=== PATIENT | male | born 1985 | race Caucasian/White ===

== ENCOUNTER 2021-07-11 09:57 | Inpatient (IN) | payer OTHER ==
[2021-07-11] MEDS ORDERED: MAGNESIUM CITRATE 300 ML BOTTLE PO PRN (12:13)
[2021-07-11] MEDS ORDERED: NICOTINE POLACRILEX 2 MG GUM BUC PRN (12:13)
[2021-07-11] MEDS ORDERED: IBUPROFEN 400 MG TABLET (FP) PO PRN (12:13)
[2021-07-11] MEDS ORDERED: LOPERAMIDE HCL 2 MG CAPSULE PO PRN (12:13)
[2021-07-11] MEDS ORDERED: guaiFENesin 200 MG/10 ML 10 ML UNIT-DOSE CUPS PO PRN (12:13)
[2021-07-11] MEDS ORDERED: ACETAMINOPHEN 325 MG TABLET (FP) PO PRN (12:13)
[2021-07-11] MEDS ORDERED: P-EPHED 60MG/TRIPROLIDI 2.5MG TABLET PO PRN (12:13)
[2021-07-11] MEDS ORDERED: MAGNESIUM HYDROX 2400MG/30ML ORAL SUSPENSION 30 ML CUP PO PRN (12:13)
[2021-07-11] MEDS ORDERED: MAG HYDROX/AL HYDROX/SIMETH 30 ML UNIT-DOSE CUP PO PRN (12:13)
[2021-07-11] MEDS ORDERED: ONDANSETRON *ODT* 4 MG TABLET SL PRN (12:15)
[2021-07-11] MEDS ORDERED: ALBUTEROL SO4 HFA INHALER IH PRN (12:16)
[2021-07-11 12:31] VITALS: BMI 28.8
[2021-07-11] MEDS ORDERED: TUBERCULIN PPD 5 TU/0.1ML VIAL ID ONE (14:15)
[2021-07-11] MEDS: ASPIRIN COATED 81 MG TABLET.EC PO SCH (14:19)
[2021-07-11] MEDS: PANTOPRAZOLE 40 MG TABLET PO SCH (14:19)
[2021-07-11] MEDS: LIDOCAINE 5% TOPICAL PATCH TP SCH (14:24)
[2021-07-11] MEDS: hydrOXYzine PAMOATE 25 MG CAPSULE (FP) PO SCH ×2 (14:25→19:36)
[2021-07-11] MEDS: BUDESONIDE/FORMETEROL FUMARATE 80/4.5 mcg INHALER IH SCH (14:25)
[2021-07-11] MEDS: LIDOCAINE PATCH REMOVAL MC SCH (21:12)
[2021-07-11] MEDS: GABAPENTIN 300 MG CAPSULE PO SCH (21:12)
[2021-07-11] MEDS: MELATONIN 5 MG TABLETS PO SCH (21:12)
[2021-07-11] MEDS: THIAMINE HCL 100 MG TABLET (FP) PO SCH (21:12)
[2021-07-12] MEDS: NICOTINE 10 MG CARTRIDGE (INHALER) IH PRN (07:01)
[2021-07-12] MEDS: ACETAMINOPHEN 325 MG TABLET (FP) PO PRN ×2 (13:19→19:35)
[2021-07-12] MEDS: LIDOCAINE 5% TOPICAL PATCH TP SCH (13:20)
[2021-07-12] MEDS: PANTOPRAZOLE 40 MG TABLET PO SCH (13:20)
[2021-07-12] MEDS: GABAPENTIN 300 MG CAPSULE PO SCH ×2 (13:20→21:25)
[2021-07-12] MEDS: ASPIRIN COATED 81 MG TABLET.EC PO SCH (13:20)
[2021-07-12] MEDS: PRENATAL VITAMINS W/ FOLIC ACID TABLET (FP) PO SCH (13:21)
[2021-07-12] MEDS: BUDESONIDE/FORMETEROL FUMARATE 80/4.5 mcg INHALER IH SCH (13:23)
[2021-07-12] MEDS ORDERED: GABAPENTIN 300 MG CAPSULE PO SCH (14:45)
[2021-07-12] MEDS: SERTRALINE HCL 50 MG TABLET (FP) PO SCH (15:03)
[2021-07-12] MEDS: MELATONIN 5 MG TABLETS PO SCH (21:25)
[2021-07-12] MEDS: THIAMINE HCL 100 MG TABLET (FP) PO SCH (21:25)
[2021-07-12] MEDS: LIDOCAINE PATCH REMOVAL MC SCH (21:25)
[2021-07-13] MEDS: ACETAMINOPHEN 325 MG TABLET (FP) PO PRN ×2 (00:35→07:11)
[2021-07-13] MEDS: NICOTINE 10 MG CARTRIDGE (INHALER) IH PRN ×2 (07:28→17:57)
[2021-07-13] MEDS: ASPIRIN COATED 81 MG TABLET.EC PO SCH (10:03)
[2021-07-13] MEDS: SERTRALINE HCL 50 MG TABLET (FP) PO SCH (10:03)
[2021-07-13] MEDS: PRENATAL VITAMINS W/ FOLIC ACID TABLET (FP) PO SCH (10:03)
[2021-07-13] MEDS: PANTOPRAZOLE 40 MG TABLET PO SCH (10:03)
[2021-07-13] MEDS: LIDOCAINE 5% TOPICAL PATCH TP SCH (10:36)
[2021-07-13] MEDS: GABAPENTIN 300 MG CAPSULE PO SCH ×2 (10:36→21:22)
[2021-07-13] MEDS: BUDESONIDE/FORMETEROL FUMARATE 80/4.5 mcg INHALER IH SCH (10:37)
[2021-07-13] MEDS: CYCLOBENZAPRINE HCL 10 MG TABLET (FP) PO SCH ×2 (11:22→14:29)
[2021-07-13 12:36] LABS: HEMATOCRIT 43.1 % (35.4-49); HEMOGLOBIN 14.3 GM/dL (11.7-16.9); MCH 31.4 pg (25.7-33.7); MCHC 33.2 g/dl (32.0-35.9); MEAN CELL VOLUME 94.3 fl (80-96); MEAN PLT VOLUME 10.9 fl (7.5-11.1); PLATELET COUNT 214 10^3/uL (134-434); RBC 4.57 M/mm3 (4.00-5.60); RDW 13.3 % (11.9-15.9); WHITE BLOOD COUNT 7.6 K/mm3 (4.0-10.0)
[2021-07-13 13:00] LABS: CALCIUM 8.9 mg/dL (8.5-10.1)
[2021-07-13 13:01] LABS: ALBUMIN 3.8 g/dl (3.4-5.0); BLOOD UREA NITROGEN 19.9 mg/dL (7-18)
[2021-07-13 13:06] LABS: BILIRUBIN,TOTAL 0.4 mg/dL (0.2-1); TOT PROT 6.6 g/dl (6.4-8.2)
[2021-07-13] MEDS: METHOCARBAMOL 750 MG TABLET PO SCH ×2 (17:57→21:23)
[2021-07-13 20:10] LABS: PH,URINE 6.5 (5.0-8.0); URINE APPEARANCE CLEAR; URINE BILIRUBIN NEGATIVE (NEGATIVE); URINE COLOR YELLOW; URINE GLUCOSE (UA) NEGATIVE (NEGATIVE); URINE KETONE TRACE (NEGATIVE); URINE LEUK ESTERASE NEGATIVE (NEGATIVE); URINE NITRITE NEGATIVE (NEGATIVE); URINE PROTEIN TRACE (NEGATIVE)
[2021-07-13] MEDS: MELATONIN 5 MG TABLETS PO SCH (21:22)
[2021-07-13] MEDS: THIAMINE HCL 100 MG TABLET (FP) PO SCH (21:23)
[2021-07-13] MEDS: LIDOCAINE PATCH REMOVAL MC SCH (21:23)
[2021-07-14] MEDS: NICOTINE 10 MG CARTRIDGE (INHALER) IH PRN (06:49)
[2021-07-14 08:27] LABS: SARS-CoV-2 NAA Not Detected
[2021-07-14] MEDS: ASPIRIN COATED 81 MG TABLET.EC PO SCH (09:52)
[2021-07-14] MEDS: BUDESONIDE/FORMETEROL FUMARATE 80/4.5 mcg INHALER IH SCH (09:52)
[2021-07-14] MEDS: SERTRALINE HCL 50 MG TABLET (FP) PO SCH (09:52)
[2021-07-14] MEDS: METHOCARBAMOL 750 MG TABLET PO SCH ×3 (09:53→21:01)
[2021-07-14] MEDS: GABAPENTIN 300 MG CAPSULE PO SCH ×2 (09:53→21:35)
[2021-07-14] MEDS: PANTOPRAZOLE 40 MG TABLET PO SCH (09:53)
[2021-07-14] MEDS: PRENATAL VITAMINS W/ FOLIC ACID TABLET (FP) PO SCH (09:53)
[2021-07-14] MEDS: LIDOCAINE 5% TOPICAL PATCH TP SCH (09:55)
[2021-07-14 10:57] LABS: SYPHILIS W/ RPR CONF NON-REACTIVE (NONREACTIVE)
[2021-07-14] MEDS: MELATONIN 5 MG TABLETS PO SCH (21:35)
[2021-07-14] MEDS: THIAMINE HCL 100 MG TABLET (FP) PO SCH (21:35)
[2021-07-14] MEDS: BACITRACIN 0.9 GM PACKET TP SCH (21:36)
[2021-07-14] MEDS: LIDOCAINE PATCH REMOVAL MC SCH (21:36)
[2021-07-14] MEDS: METHOCARBAMOL 500 MG TABLET PO SCH (21:36)
[2021-07-15] MEDS: ASPIRIN COATED 81 MG TABLET.EC PO SCH (11:23)
[2021-07-15] MEDS: BUDESONIDE/FORMETEROL FUMARATE 80/4.5 mcg INHALER IH SCH (11:23)
[2021-07-15] MEDS: BACITRACIN 0.9 GM PACKET TP SCH ×2 (11:23→21:24)
[2021-07-15] MEDS: SERTRALINE HCL 50 MG TABLET (FP) PO SCH (11:24)
[2021-07-15] MEDS: LIDOCAINE 5% TOPICAL PATCH TP SCH (11:24)
[2021-07-15] MEDS: METHOCARBAMOL 500 MG TABLET PO SCH ×4 (11:24→21:25)
[2021-07-15] MEDS: PANTOPRAZOLE 40 MG TABLET PO SCH (11:24)
[2021-07-15] MEDS: GABAPENTIN 300 MG CAPSULE PO SCH ×2 (11:24→21:24)
[2021-07-15] MEDS: PRENATAL VITAMINS W/ FOLIC ACID TABLET (FP) PO SCH (11:25)
[2021-07-15] MEDS: ACETAMINOPHEN 325 MG TABLET (FP) PO PRN (11:37)
[2021-07-15] MEDS: MELATONIN 5 MG TABLETS PO SCH (21:24)
[2021-07-15] MEDS: THIAMINE HCL 100 MG TABLET (FP) PO SCH (21:24)
[2021-07-15] MEDS: LIDOCAINE PATCH REMOVAL MC SCH (21:25)
[2021-07-16] MEDS: NICOTINE 10 MG CARTRIDGE (INHALER) IH PRN (07:11)
[2021-07-16 08:15] VITALS: BP 124/74; PULSE 75; TEMP 96.9
[2021-07-16] MEDS: BACITRACIN 0.9 GM PACKET TP SCH (10:13)
[2021-07-16] MEDS: SERTRALINE HCL 50 MG TABLET (FP) PO SCH (10:13)
[2021-07-16] MEDS: BUDESONIDE/FORMETEROL FUMARATE 80/4.5 mcg INHALER IH SCH (10:13)
[2021-07-16] MEDS: ASPIRIN COATED 81 MG TABLET.EC PO SCH (10:14)
[2021-07-16] MEDS: LIDOCAINE 5% TOPICAL PATCH TP SCH (10:14)
[2021-07-16] MEDS: PANTOPRAZOLE 40 MG TABLET PO SCH (10:14)
[2021-07-16] MEDS: PRENATAL VITAMINS W/ FOLIC ACID TABLET (FP) PO SCH (10:14)
[2021-07-16] MEDS: GABAPENTIN 300 MG CAPSULE PO SCH (10:14)
[2021-07-16] MEDS: METHOCARBAMOL 500 MG TABLET PO SCH (10:15)
== END 2021-07-16 10:35 | disposition home or self-care (01) | DRG 772 ==
LOC: YASAS 09:57 → Y3W 12:46
PROVIDERS: ADMIT Allergy & Immunology; ATTEND Allergy & Immunology
PROC: HZ42ZZZ Group Counseling for Substance Abuse Treatment, Cognitive-Behavioral (ICD-10-PCS; principal; 2021-07-11)
DX: F10.20 Alcohol dependence, uncomplicated (principal); F17.210 Nicotine dependence, cigarettes, uncomplicated; F10.24 Alcohol dependence with alcohol-induced mood disorder; F10.282 Alcohol dependence with alcohol-induced sleep disorder; F20.9 Schizophrenia, unspecified; F31.9 Bipolar disorder, unspecified; I48.91 Unspecified atrial fibrillation; I10 Essential (primary) hypertension; J45.909 Unspecified asthma, uncomplicated; K21.9 Gastro-esophageal reflux disease without esophagitis; M54.50 Low back pain, unspecified; G89.29 Other chronic pain; W19.XXXA Unspecified fall, initial encounter; Y92.230 Patient room in hospital as the place of occurrence of the external cause; Z62.810 Personal history of physical and sexual abuse in childhood; I69.854 Hemiplegia and hemiparesis following other cerebrovascular disease affecting left non-dominant side; Z99.89 Dependence on other enabling machines and devices; Z28.310 Unvaccinated for COVID-19; Z56.0 Unemployment, unspecified; Z59.00 Homelessness unspecified
CPT/HCPCS: 36415; 80053; 81003; 82962; 85027; 86780; 86803; 93005; 93010; C9803-CS; U0003; U0005

== ENCOUNTER 2021-07-12 09:40 | Emergency (ER) | payer OTHER ==
[2021-07-12 09:51] VITALS: BP 124/72; PULSE 74; TEMP 97.8; BMI 28.8
[2021-07-12] MEDS ORDERED: IBUPROFEN 400 MG TABLET (FP) PO ONE ×2 (10:11→11:30)
[2021-07-12] MEDS ORDERED: METHOCARBAMOL 500 MG TABLET PO ONE (11:25)
[2021-07-12] MEDS ORDERED: METHOCARBAMOL 500 MG TABLET ONE (11:53)
== END 2021-07-12 12:11 | disposition home or self-care (01) ==
LOC: JER 09:40
DX: R07.81 Pleurodynia (principal); W19.XXXA Unspecified fall, initial encounter
CPT/HCPCS: 70450-TC; 71046-TC-FY; 72125-TC; 72170-TC-FY; 93005; 93010; 99285-25

== ENCOUNTER 2021-09-03 12:51 | Inpatient (IN) | payer OTHER ==
[2021-09-03 14:18] VITALS: BMI 30.4
[2021-09-03] MEDS ORDERED: ACETAMINOPHEN 325 MG TABLET (FP) PO PRN ×2 (14:35)
[2021-09-03] MEDS ORDERED: MAGNESIUM HYDROX 2400MG/30ML ORAL SUSPENSION 30 ML CUP PO PRN (14:35)
[2021-09-03] MEDS ORDERED: BENZOCAINE/MENTHOL (CHLORASEPTIC ) LOZENGE MM PRN (14:35)
[2021-09-03] MEDS ORDERED: IBUPROFEN 600 MG TABLET (FP) PO PRN (14:35)
[2021-09-03] MEDS ORDERED: LOPERAMIDE HCL 2 MG CAPSULE PO PRN (14:35)
[2021-09-03] MEDS ORDERED: BISMUTH SUBSALICYLATE 262 MG/15 ML BTL PO PRN (14:35)
[2021-09-03] MEDS ORDERED: MAG HYDROX/AL HYDROX/SIMETH 30 ML UNIT-DOSE CUP PO PRN (14:35)
[2021-09-03] MEDS ORDERED: IBUPROFEN 400 MG TABLET (FP) PO PRN (14:35)
[2021-09-03] MEDS ORDERED: MAGNESIUM CITRATE 300 ML BOTTLE PO PRN (14:35)
[2021-09-03] MEDS ORDERED: ONDANSETRON *ODT* 4 MG TABLET SL PRN (14:35)
[2021-09-03] MEDS ORDERED: DICYCLOMINE HCL 10 MG CAPSULE PO PRN (14:35)
[2021-09-03] MEDS ORDERED: chlordiazePOXIDE HCL 25 MG CAPSULE PO PRN (14:35)
[2021-09-03] MEDS ORDERED: ALBUTEROL SO4 HFA INHALER IH PRN (14:40)
[2021-09-03 16:01] LABS: CALCIUM 9.4 mg/dL (8.5-10.1); HEMATOCRIT 47.8 % (35.4-49); HEMOGLOBIN 16.4 GM/dL (11.7-16.9); MCH 31.7 pg (25.7-33.7); MCHC 34.3 g/dl (32.0-35.9); MEAN CELL VOLUME 92.3 fl (80-96); MEAN PLT VOLUME 10.4 fl (7.5-11.1); PLATELET COUNT 197 10^3/uL (134-434); RBC 5.18 M/mm3 (4.00-5.60); RDW 13.4 % (11.9-15.9); WHITE BLOOD COUNT 6.5 K/mm3 (4.0-10.0)
[2021-09-03 16:02] LABS: ALBUMIN 3.9 g/dl (3.4-5.0); BLOOD UREA NITROGEN 12.8 mg/dL (7-18)
[2021-09-03 16:04] LABS: CREATININE 1.1 mg/dL (0.55-1.3)
[2021-09-03 16:06] LABS: BILIRUBIN,TOTAL 0.2 mg/dL (0.2-1)
[2021-09-03] MEDS: chlordiazePOXIDE HCL 25 MG CAPSULE PO SCH ×2 (16:36→22:40)
[2021-09-03] MEDS: PRENATAL VITAMINS W/ FOLIC ACID TABLET (FP) PO SCH (16:36)
[2021-09-03] MEDS: hydrOXYzine PAMOATE 25 MG CAPSULE (FP) PO SCH ×2 (17:00→22:41)
[2021-09-03] MEDS: NICOTINE 10 MG CARTRIDGE (INHALER) IH PRN (22:40)
[2021-09-03] MEDS: THIAMINE HCL 100 MG TABLET (FP) PO SCH (22:41)
[2021-09-03] MEDS: MELATONIN 5 MG TABLETS PO SCH (22:41)
[2021-09-03] MEDS: METHOCARBAMOL 500 MG TABLET PO PRN (22:41)
[2021-09-04] MEDS: chlordiazePOXIDE HCL 25 MG CAPSULE PO SCH ×4 (05:56→22:43)
[2021-09-04] MEDS: METHOCARBAMOL 500 MG TABLET PO PRN (05:56)
[2021-09-04] MEDS: hydrOXYzine PAMOATE 25 MG CAPSULE (FP) PO SCH ×2 (05:56→10:45)
[2021-09-04] MEDS: PRENATAL VITAMINS W/ FOLIC ACID TABLET (FP) PO SCH (10:45)
[2021-09-04] MEDS: PANTOPRAZOLE 40 MG TABLET PO SCH (10:45)
[2021-09-04] MEDS: BUDESONIDE/FORMETEROL FUMARATE 80/4.5 mcg INHALER IH SCH (10:46)
[2021-09-04] MEDS ORDERED: hydrOXYzine PAMOATE 25 MG CAPSULE (FP) PO PRN (13:40)
[2021-09-04 14:34] LABS: HIV INTERPRETATION NEGATIVE (NEGATIVE)
[2021-09-04] MEDS: MELATONIN 5 MG TABLETS PO SCH (22:43)
[2021-09-04] MEDS: THIAMINE HCL 100 MG TABLET (FP) PO SCH (22:43)
[2021-09-05] MEDS: chlordiazePOXIDE HCL 25 MG CAPSULE PO SCH ×4 (06:18→23:56)
[2021-09-05] MEDS ORDERED: SERTRALINE HCL 50 MG TABLET (FP) PO SCH (10:00)
[2021-09-05] MEDS: BUDESONIDE/FORMETEROL FUMARATE 80/4.5 mcg INHALER IH SCH (11:07)
[2021-09-05] MEDS: PRENATAL VITAMINS W/ FOLIC ACID TABLET (FP) PO SCH (11:08)
[2021-09-05] MEDS: PANTOPRAZOLE 40 MG TABLET PO SCH (11:08)
[2021-09-05] MEDS: METHOCARBAMOL 500 MG TABLET PO PRN (11:10)
[2021-09-05] MEDS: NICOTINE 10 MG CARTRIDGE (INHALER) IH PRN (11:11)
[2021-09-05 17:56] VITALS: BP 146/88; PULSE 88; TEMP 36.9
[2021-09-05] MEDS: MELATONIN 5 MG TABLETS PO SCH (23:55)
[2021-09-05] MEDS: THIAMINE HCL 100 MG TABLET (FP) PO SCH (23:56)
[2021-09-06] MEDS ORDERED: chlordiazePOXIDE HCL 10 MG CAPSULE PO PRN
[2021-09-06] MEDS ORDERED: ACETAMINOPHEN 325 MG TABLET (FP) PO PRN (04:04)
[2021-09-06] MEDS ORDERED: LORazepam 0.5 MG TABLET PO PRN (04:04)
[2021-09-06] MEDS ORDERED: chlordiazePOXIDE HCL 10 MG CAPSULE PO SCH (05:00)
[2021-09-06] MEDS ORDERED: FAMOTIDINE 20 MG TABLET PO SCH (10:00)
[2021-09-06] MEDS ORDERED: ENOXAPARIN NA (PORCINE) 40 MG/0.4 ML DISP.SYRIN SQ SCH (10:00)
[2021-09-07] MEDS ORDERED: chlordiazePOXIDE HCL 10 MG CAPSULE PO SCH (05:00)
[2021-09-08] MEDS ORDERED: chlordiazePOXIDE HCL 10 MG CAPSULE PO ONE (05:00)
== END 2021-09-05 17:00 | disposition short-term general hospital (02) | DRG 774 ==
LOC: YASAS 12:51 → Y3N 15:21
PROVIDERS: ADMIT Allergy & Immunology; ATTEND Surgery
PROC: HZ2ZZZZ Detoxification Services for Substance Abuse Treatment (ICD-10-PCS; principal; 2021-09-03)
DX: F10.230 Alcohol dependence with withdrawal, uncomplicated (principal); F14.20 Cocaine dependence, uncomplicated; F17.210 Nicotine dependence, cigarettes, uncomplicated; F20.9 Schizophrenia, unspecified; I10 Essential (primary) hypertension; I25.10 Atherosclerotic heart disease of native coronary artery without angina pectoris; I48.91 Unspecified atrial fibrillation; J45.909 Unspecified asthma, uncomplicated; K21.9 Gastro-esophageal reflux disease without esophagitis; M54.59 Other low back pain; G89.29 Other chronic pain; I69.354 Hemiplegia and hemiparesis following cerebral infarction affecting left non-dominant side; R07.89 Other chest pain; R20.0 Anesthesia of skin; R00.0 Tachycardia, unspecified; Z28.310 Unvaccinated for COVID-19; Z91.51 Personal history of suicidal behavior; Z56.0 Unemployment, unspecified; Z59.00 Homelessness unspecified
CPT/HCPCS: 36415; 80053; 85027; 86780; 87389; 87811; 93005; 93010; C9803-CS; U0003; U0005

== ENCOUNTER 2021-09-05 18:12 | Observation (INO) | payer OTHER ==
[2021-09-05 19:05] VITALS: BMI 30.4
[2021-09-05] MEDS ORDERED: ASPIRIN 81 MG CHEWABLE TABLETS PO ONE (20:41)
[2021-09-05] MEDS ORDERED: METOCLOPRAMIDE HCL 10 MG TABLET (FP) PO ONE ×2 (21:08→21:27)
[2021-09-05] MEDS ORDERED: ASPIRIN 81 MG CHEWABLE TABLETS ONE (21:27)
[2021-09-05] MEDS ORDERED: methaDONE HCL 10 MG TABLET (FOR DETOX USE ONLY) PO ONE (21:49)
[2021-09-05] MEDS ORDERED: methaDONE HCL 10 MG TABLET ONE (21:50)
[2021-09-05 22:23] LABS: INR 0.89 (0.83-1.09); PROTHROMBIN TIME (PATIENT) 10.2 SEC (9.7-13.0)
[2021-09-05 22:36] LABS: CALCIUM 8.6 mg/dL (8.5-10.1)
[2021-09-05 22:37] LABS: ALBUMIN 3.5 g/dl (3.4-5.0); BLOOD UREA NITROGEN 6.8 mg/dL (7-18)
[2021-09-05 22:40] LABS: CREATININE 0.8 mg/dL (0.55-1.3)
[2021-09-05 22:41] LABS: BASO % 0.8 % (0-2.0); EOS % 1.9 % (0-4.5); HEMATOCRIT 44.3 % (35.4-49); LYMPH % 34.3 % (8-40); MCH 31.5 pg (25.7-33.7); MCHC 33.9 g/dl (32.0-35.9); MEAN CELL VOLUME 92.9 fl (80-96); MEAN PLT VOLUME 10.4 fl (7.5-11.1); PLATELET COUNT 185 10^3/uL (134-434); RBC 4.77 M/mm3 (4.00-5.60); RDW 13.4 % (11.9-15.9); WHITE BLOOD COUNT 8.2 K/mm3 (4.0-10.0)
[2021-09-05 22:42] LABS: BILIRUBIN,TOTAL 0.2 mg/dL (0.2-1); TOT PROT 6.4 g/dl (6.4-8.2)
[2021-09-06] MEDS ORDERED: NICOTINE POLACRILEX 2 MG GUM BUC PRN (06:06)
[2021-09-06] MEDS: ENOXAPARIN NA (PORCINE) 40 MG/0.4 ML DISP.SYRIN SQ SCH (10:40)
[2021-09-06] MEDS: NICOTINE 21 MG/24 HOURS TOPICAL PATCH TD SCH (10:40)
[2021-09-06] MEDS: PANTOPRAZOLE 20 MG TABLET PO SCH (10:40)
[2021-09-06] MEDS ORDERED: PANTOPRAZOLE 20 MG TABLET PO ONE (10:54)
[2021-09-06] MEDS ORDERED: ENOXAPARIN NA (PORCINE) 40 MG/0.4 ML DISP.SYRIN SQ ONE (10:54)
[2021-09-06] MEDS ORDERED: NICOTINE 21 MG/24 HOURS TOPICAL PATCH ONE (10:54)
[2021-09-06 11:53] LABS: URINE APPEARANCE CLEAR; URINE BILIRUBIN NEGATIVE (NEGATIVE); URINE COLOR YELLOW; URINE GLUCOSE (UA) NEGATIVE (NEGATIVE); URINE KETONE NEGATIVE (NEGATIVE); URINE LEUK ESTERASE NEGATIVE (NEGATIVE); URINE NITRITE NEGATIVE (NEGATIVE); URINE PROTEIN NEGATIVE (NEGATIVE); URINE UROBILINOGEN 0.2 mg/dL (0.2-1.0)
[2021-09-06 12:58] LABS: BASO % 0.7 % (0-2.0); EOS % 2.2 % (0-4.5); HEMATOCRIT 46.6 % (35.4-49); HEMOGLOBIN 15.9 GM/dL (11.7-16.9); LYMPH % 35.1 % (8-40); MCH 31.4 pg (25.7-33.7); MEAN CELL VOLUME 92.4 fl (80-96); MEAN PLT VOLUME 10.1 fl (7.5-11.1); MONO % 7.1 % (3.8-10.2); NEUT % 54.9 % (42.8-82.8); PLATELET COUNT 190 10^3/uL (134-434); RBC 5.04 M/mm3 (4.00-5.60); RDW 13.7 % (11.9-15.9); WHITE BLOOD COUNT 6.5 K/mm3 (4.0-10.0)
[2021-09-06 13:27] LABS: BLOOD UREA NITROGEN 10.2 mg/dL (7-18); CALCIUM 8.5 mg/dL (8.5-10.1)
[2021-09-06 13:28] LABS: ALBUMIN 3.5 g/dl (3.4-5.0); MAGNESIUM 2.1 mg/dL (1.8-2.4)
[2021-09-06 13:30] LABS: CREATININE 0.8 mg/dL (0.55-1.3)
[2021-09-06 13:32] LABS: BILIRUBIN,TOTAL 0.2 mg/dL (0.2-1); TOT PROT 6.3 g/dl (6.4-8.2)
[2021-09-06] MEDS ORDERED: LORazepam 0.5 MG TABLET ONE (16:30)
[2021-09-06] MEDS: LORazepam 0.5 MG TABLET PO PRN (16:36)
[2021-09-06] MEDS: ACETAMINOPHEN 325 MG TABLET (FP) PO PRN (19:00)
[2021-09-06] MEDS ORDERED: ACETAMINOPHEN 325 MG TABLET (FP) ONE (19:04)
[2021-09-06] MEDS ORDERED: METOCLOPRAMIDE HCL INJECTION 10 MG/2 ML VIAL ONE (19:04)
[2021-09-06] MEDS: METOCLOPRAMIDE HCL INJECTION 10 MG/2 ML VIAL IVPUSH PRN (19:11)
[2021-09-06] MEDS: chlordiazePOXIDE HCL 25 MG CAPSULE PO SCH ×2 (21:34→22:08)
[2021-09-06] MEDS ORDERED: MELATONIN 5 MG TABLETS PO ONE (21:53)
[2021-09-06] MEDS ORDERED: MELATONIN 5 MG TABLETS ONE (22:01)
[2021-09-06] MEDS ORDERED: chlordiazePOXIDE HCL 25 MG CAPSULE ONE (23:11)
[2021-09-06] MEDS: chlordiazePOXIDE HCL 25 MG CAPSULE PO PRN (23:30)
[2021-09-07] MEDS ORDERED: ACETAMINOPHEN 325 MG TABLET (FP) ONE (01:36)
[2021-09-07] MEDS ORDERED: LORazepam 0.5 MG TABLET ONE (01:36)
[2021-09-07] MEDS: LORazepam 0.5 MG TABLET PO PRN (01:40)
[2021-09-07] MEDS: ACETAMINOPHEN 325 MG TABLET (FP) PO PRN (01:40)
[2021-09-07] MEDS ORDERED: KETOROLAC TROMETHAMINE 30 MG/1 ML VIAL IM ONE (02:36)
[2021-09-07] MEDS ORDERED: KETOROLAC TROMETHAMINE 15 MG/ML VIAL ONE (02:40)
[2021-09-07] MEDS ORDERED: chlordiazePOXIDE HCL 25 MG CAPSULE ONE ×2 (04:41→09:37)
[2021-09-07] MEDS ORDERED: METOCLOPRAMIDE HCL INJECTION 10 MG/2 ML VIAL ONE (04:41)
[2021-09-07] MEDS: chlordiazePOXIDE HCL 25 MG CAPSULE PO SCH (05:00)
[2021-09-07] MEDS: METOCLOPRAMIDE HCL INJECTION 10 MG/2 ML VIAL IVPUSH PRN (05:01)
[2021-09-07] MEDS ORDERED: ALBUTEROL SO4 2.5/IPRATROPIUM 0.5 INH SOL 3 ML VIAL.NEB. NEB PRN (07:26)
[2021-09-07] MEDS ORDERED: PANTOPRAZOLE 20 MG TABLET PO ONE (09:37)
[2021-09-07] MEDS ORDERED: ASPIRIN COATED 81 MG TABLET.EC ONE (09:37)
[2021-09-07] MEDS ORDERED: MECLIZINE HCL 12.5 MG TABLET ONE (09:37)
[2021-09-07] MEDS ORDERED: NICOTINE 21 MG/24 HOURS TOPICAL PATCH ONE (09:38)
[2021-09-07] MEDS ORDERED: SERTRALINE HCL 50 MG TABLET (FP) ONE (09:38)
[2021-09-07] MEDS ORDERED: ENOXAPARIN NA (PORCINE) 40 MG/0.4 ML DISP.SYRIN SQ ONE (09:38)
[2021-09-07] MEDS: ENOXAPARIN NA (PORCINE) 40 MG/0.4 ML DISP.SYRIN SQ SCH (09:46)
[2021-09-07] MEDS: NICOTINE 21 MG/24 HOURS TOPICAL PATCH TD SCH (09:46)
[2021-09-07] MEDS: PANTOPRAZOLE 20 MG TABLET PO SCH (09:46)
[2021-09-07] MEDS: chlordiazePOXIDE HCL 25 MG CAPSULE PO PRN (09:47)
[2021-09-07] MEDS ORDERED: MECLIZINE HCL 12.5 MG TABLET PO SCH (10:00)
[2021-09-07] MEDS ORDERED: ASPIRIN COATED 81 MG TABLET.EC PO SCH (10:00)
[2021-09-07] MEDS ORDERED: SERTRALINE HCL 50 MG TABLET (FP) PO SCH (10:00)
[2021-09-07] MEDS ORDERED: BUDESONIDE/FORMETEROL FUMARATE 80/4.5 mcg INHALER IH SCH (10:00)
[2021-09-07 14:43] VITALS: BP 116/72; PULSE 78; TEMP 97.8
[2021-09-07] MEDS ORDERED: ATORVASTATIN CA 40 MG TABLET (FP) PO SCH (22:00)
[2021-09-08] MEDS ORDERED: chlordiazePOXIDE HCL 25 MG CAPSULE PO SCH (05:00)
[2021-09-09] MEDS ORDERED: chlordiazePOXIDE HCL 10 MG CAPSULE PO PRN
[2021-09-09] MEDS ORDERED: chlordiazePOXIDE HCL 10 MG CAPSULE PO SCH (05:00)
[2021-09-10] MEDS ORDERED: chlordiazePOXIDE HCL 10 MG CAPSULE PO SCH (05:00)
[2021-09-11] MEDS ORDERED: chlordiazePOXIDE HCL 10 MG CAPSULE PO ONE (05:00)
== END 2021-09-07 14:54 ==
LOC: JER 18:12 → JERBED 09-06 01:46
PROVIDERS: ADMIT Hospitalist; ATTEND Nurse Practitioner Family
PROC: 3E023GC Introduction of Other Therapeutic Substance into Muscle, Percutaneous Approach (ICD-10-PCS; principal; 2021-09-06)
PROC: 3E0233Z Introduction of Anti-inflammatory into Muscle, Percutaneous Approach (ICD-10-PCS; 2021-09-06)
PROC: 3E033GC Introduction of Other Therapeutic Substance into Peripheral Vein, Percutaneous Approach (ICD-10-PCS; 2021-09-06)
DX: I11.0 Hypertensive heart disease with heart failure (principal); F19.10 Other psychoactive substance abuse, uncomplicated; F20.9 Schizophrenia, unspecified; I69.854 Hemiplegia and hemiparesis following other cerebrovascular disease affecting left non-dominant side; I25.10 Atherosclerotic heart disease of native coronary artery without angina pectoris; I48.91 Unspecified atrial fibrillation; I11.9 Hypertensive heart disease without heart failure; Z91.14 Patient's other noncompliance with medication regimen; J45.909 Unspecified asthma, uncomplicated; N20.0 Calculus of kidney; Z99.89 Dependence on other enabling machines and devices; E66.9 Obesity, unspecified; Z68.30 Body mass index [BMI] 30.0-30.9, adult; F17.210 Nicotine dependence, cigarettes, uncomplicated; R42 Dizziness and giddiness; R07.89 Other chest pain; F32.9 Major depressive disorder, single episode, unspecified; F10.230 Alcohol dependence with withdrawal, uncomplicated; F14.10 Cocaine abuse, uncomplicated
CPT/HCPCS: 36415; 70450-TC; 71046-TC-FY; 80053; 80061; 81003; 83036; 83735; 84100; 84439; 84443; 84484; 85025; 85610; 85730; 93005; 93010; 99285-25; C9803-CS; G0378; U0003; U0005

== ENCOUNTER 2022-01-30 09:39 | Inpatient (IN) | payer OTHER ==
[2022-01-30 10:03] VITALS: BMI 25.8
[2022-01-30] MEDS ORDERED: diazePAM CARPU-JECT 10 MG/2 ML DISP.SYRIN IVPUSH ONE ×3 (10:16→15:03)
[2022-01-30] MEDS ORDERED: diazePAM CARPU-JECT 10 MG/2 ML DISP.SYRIN ONE (10:43)
[2022-01-30 11:19] LABS: BASO % 0.8 % (0-2.0); EOS % 0.1 % (0-4.5); HEMATOCRIT 42.3 % (35.4-49); HEMOGLOBIN 14.4 GM/dL (11.7-16.9); LYMPH % 19.1 % (8-40); MEAN CELL VOLUME 91.3 fl (80-96); MEAN PLT VOLUME 9.4 fl (7.5-11.1); MONO % 5.4 % (3.8-10.2); NEUT % 74.6 % (42.8-82.8); PLATELET COUNT 207 10^3/uL (134-434); RBC 4.63 M/mm3 (4.00-5.60); RDW 14.6 % (11.9-15.9); WHITE BLOOD COUNT 12.3 K/mm3 (4.0-10.0)
[2022-01-30] MEDS ORDERED: ACETAMINOPHEN 1000 MG/100 ML BAG IVPB ONE (11:23)
[2022-01-30 11:25] LABS: INR 1.03 (0.83-1.09); PROTHROMBIN TIME (PATIENT) 11.9 SEC (9.7-13.0)
[2022-01-30 11:27] LABS: ACTIVATED PTT 24.9 SECONDS (25.2-36.5)
[2022-01-30] MEDS ORDERED: ACETAMINOPHEN INJECTION 100 ML IVPB ONE (11:31)
[2022-01-30 11:47] LABS: ALBUMIN 4.6 g/dl (3.4-5.0); BLOOD UREA NITROGEN 28.3 mg/dL (7-18); CALCIUM 9.3 mg/dL (8.5-10.1)
[2022-01-30 11:48] LABS: MAGNESIUM 2.2 mg/dL (1.8-2.4)
[2022-01-30 11:49] LABS: CREATININE 0.9 mg/dL (0.55-1.3)
[2022-01-30 11:52] LABS: BILIRUBIN,TOTAL 0.6 mg/dL (0.2-1); TOT PROT 8.1 g/dl (6.4-8.2)
[2022-01-30] MEDS ORDERED: diazePAM 5 MG TABLET PO ONE (15:11)
[2022-01-30] MEDS ORDERED: ALBUTEROL SO4 HFA INHALER IH PRN (15:39)
[2022-01-30] MEDS ORDERED: ALBUTEROL SO4 2.5/IPRATROPIUM 0.5 INH SOL 3 ML VIAL.NEB. NEB PRN (15:39)
[2022-01-30] MEDS ORDERED: diazePAM 5 MG TABLET ONE (15:45)
[2022-01-30] MEDS ORDERED: chlordiazePOXIDE HCL 25 MG CAPSULE PO PRN (15:50)
[2022-01-30] MEDS: chlordiazePOXIDE HCL 25 MG CAPSULE PO SCH ×2 (16:42→23:35)
[2022-01-30] MEDS ORDERED: FOLIC ACID INJECTION - 1 MG, THIAMINE HCL 100 MG, MULTIVIT INJECTION ADULT 10 ML in SOD... IVPB ONE (16:54)
[2022-01-30] MEDS ORDERED: THIAMINE HCL 200 MG/2 ML VIAL IM SCH (17:00)
[2022-01-30] MEDS ORDERED: chlordiazePOXIDE HCL 25 MG CAPSULE PO SCH (17:00)
[2022-01-30] MEDS ORDERED: THIAMINE HCL 200 MG/2 ML VIAL ONE (17:37)
[2022-01-30] MEDS ORDERED: HEPARIN NA (PORCINE) 5,000 UNITS/ML 1ML VIAL ONE (23:21)
[2022-01-30] MEDS ORDERED: ATORVASTATIN CA 40 MG TABLET (FP) ONE (23:21)
[2022-01-30] MEDS ORDERED: chlordiazePOXIDE HCL 25 MG CAPSULE ONE (23:21)
[2022-01-30] MEDS: HEPARIN NA (PORCINE) 5,000 UNITS/ML 1ML VIAL SQ SCH (23:35)
[2022-01-30] MEDS: ATORVASTATIN CA 40 MG TABLET (FP) PO SCH (23:35)
[2022-01-31] MEDS ORDERED: chlordiazePOXIDE HCL 25 MG CAPSULE ONE ×3 (05:10→11:19)
[2022-01-31] MEDS: chlordiazePOXIDE HCL 25 MG CAPSULE PO SCH ×4 (05:19→22:49)
[2022-01-31] MEDS ORDERED: SERTRALINE HCL 50 MG TABLET (FP) ONE (08:27)
[2022-01-31 08:44] LABS: BASO % 0.4 % (0-2.0); EOS % 2.5 % (0-4.5); HEMATOCRIT 41.2 % (35.4-49); HEMOGLOBIN 13.9 GM/dL (11.7-16.9); LYMPH % 27.3 % (8-40); MCH 30.9 pg (25.7-33.7); MCHC 33.7 g/dl (32.0-35.9); MEAN CELL VOLUME 91.5 fl (80-96); MEAN PLT VOLUME 9.7 fl (7.5-11.1); NEUT % 62.8 % (42.8-82.8); PLATELET COUNT 184 10^3/uL (134-434); RDW 14.2 % (11.9-15.9); WHITE BLOOD COUNT 6.7 K/mm3 (4.0-10.0)
[2022-01-31 09:14] LABS: BLOOD UREA NITROGEN 21.6 mg/dL (7-18); CALCIUM 8.4 mg/dL (8.5-10.1)
[2022-01-31 09:17] LABS: CREATININE 0.8 mg/dL (0.55-1.3)
[2022-01-31 09:18] LABS: BILIRUBIN,TOTAL 0.5 mg/dL (0.2-1); TOT PROT 6.6 g/dl (6.4-8.2)
[2022-01-31 09:33] LABS: ALBUMIN 3.5 g/dl (3.4-5.0)
[2022-01-31] MEDS ORDERED: SERTRALINE HCL 50 MG TABLET (FP) PO SCH (10:00)
[2022-01-31] MEDS ORDERED: PANTOPRAZOLE 40 MG TABLET PO SCH (10:00)
[2022-01-31] MEDS ORDERED: ASPIRIN 81 MG CHEWABLE TABLETS PO SCH (10:00)
[2022-01-31] MEDS ORDERED: FOLIC ACID 1 MG TABLET (FP) PO SCH (10:00)
[2022-01-31] MEDS ORDERED: PANTOPRAZOLE 40 MG TABLET PO ONE (10:04)
[2022-01-31] MEDS ORDERED: THIAMINE HCL 100 MG TABLET (FP) ONE (10:04)
[2022-01-31] MEDS ORDERED: FOLIC ACID 1 MG TABLET (FP) ONE (10:04)
[2022-01-31] MEDS ORDERED: ASPIRIN 81 MG CHEWABLE TABLETS ONE (10:05)
[2022-01-31] MEDS ORDERED: HEPARIN NA (PORCINE) 5,000 UNITS/ML 1ML VIAL ONE (10:05)
[2022-01-31] MEDS: HEPARIN NA (PORCINE) 5,000 UNITS/ML 1ML VIAL SQ SCH ×2 (10:11→21:45)
[2022-01-31] MEDS: THIAMINE HCL 100 MG TABLET (FP) PO SCH (10:11)
[2022-01-31] MEDS ORDERED: KETOROLAC TROMETHAMINE 15 MG/ML VIAL IVPUSH ONE (11:00)
[2022-01-31] MEDS ORDERED: KETOROLAC TROMETHAMINE 15 MG/ML VIAL ONE (11:19)
[2022-01-31] MEDS: BUDESONIDE/FORMETEROL FUMARATE 80/4.5 mcg INHALER IH SCH ×2 (11:32→21:51)
[2022-01-31] MEDS ORDERED: methaDONE HCL 10 MG TABLET PO ONE (13:26)
[2022-01-31] MEDS ORDERED: methaDONE HCL 10 MG TABLET ONE (14:30)
[2022-01-31] MEDS ORDERED: LIDOCAINE 5% TOPICAL PATCH TP SCH ×2 (19:00→22:00)
[2022-01-31] MEDS: LIDOCAINE PATCH REMOVAL MC SCH (21:46)
[2022-01-31] MEDS: ATORVASTATIN CA 40 MG TABLET (FP) PO SCH (21:46)
[2022-01-31] MEDS: BACLOFEN 10 MG TABLET (FP) PO PRN (21:55)
[2022-01-31] MEDS ORDERED: LIDOCAINE PATCH REMOVAL MC SCH (22:00)
[2022-02-01] MEDS ORDERED: chlordiazePOXIDE HCL 10 MG CAPSULE PO SCH (05:00)
[2022-02-01] MEDS ORDERED: ALBUTEROL SO4 HFA INHALER IH PRN (08:23)
[2022-02-01] MEDS ORDERED: chlordiazePOXIDE HCL 10 MG CAPSULE PO PRN ×2 (08:23)
[2022-02-01] MEDS ORDERED: ALBUTEROL SO4 2.5/IPRATROPIUM 0.5 INH SOL 3 ML VIAL.NEB. NEB PRN (08:23)
[2022-02-01] MEDS: ASPIRIN 81 MG CHEWABLE TABLETS PO SCH (09:45)
[2022-02-01] MEDS: SERTRALINE HCL 50 MG TABLET (FP) PO SCH (09:45)
[2022-02-01] MEDS: FOLIC ACID 1 MG TABLET (FP) PO SCH (09:45)
[2022-02-01] MEDS: THIAMINE HCL 100 MG TABLET (FP) PO SCH (09:45)
[2022-02-01] MEDS: HEPARIN NA (PORCINE) 5,000 UNITS/ML 1ML VIAL SQ SCH ×2 (09:45→21:32)
[2022-02-01] MEDS: PANTOPRAZOLE 40 MG TABLET PO SCH (09:45)
[2022-02-01] MEDS: BUDESONIDE/FORMETEROL FUMARATE 80/4.5 mcg INHALER IH SCH ×2 (09:47→23:10)
[2022-02-01] MEDS: LIDOCAINE 5% TOPICAL PATCH TP SCH (09:48)
[2022-02-01] MEDS: BACLOFEN 10 MG TABLET (FP) PO PRN ×2 (10:54→20:22)
[2022-02-01] MEDS: methaDONE HCL 10 MG TABLET PO SCH (10:56)
[2022-02-01] MEDS: chlordiazePOXIDE HCL 10 MG CAPSULE PO SCH ×3 (10:59→22:59)
[2022-02-01] MEDS ORDERED: ACETAMINOPHEN 1000 MG/100 ML BAG IVPB ONE ×2 (17:06→23:00)
[2022-02-01] MEDS: ATORVASTATIN CA 40 MG TABLET (FP) PO SCH (21:32)
[2022-02-01] MEDS: LIDOCAINE PATCH REMOVAL MC SCH (21:32)
[2022-02-02] MEDS ORDERED: chlordiazePOXIDE HCL 10 MG CAPSULE PO SCH (05:00)
[2022-02-02] MEDS: methaDONE HCL 10 MG TABLET PO SCH (05:55)
[2022-02-02] MEDS: chlordiazePOXIDE HCL 10 MG CAPSULE PO SCH ×2 (05:56→16:38)
[2022-02-02 07:56] LABS: BASO % 0.7 % (0-2.0); EOS % 3.7 % (0-4.5); LYMPH % 48.4 % (8-40); MCH 30.4 pg (25.7-33.7); MCHC 33.4 g/dl (32.0-35.9); MEAN CELL VOLUME 91.1 fl (80-96); MEAN PLT VOLUME 10.4 fl (7.5-11.1); MONO % 7.3 % (3.8-10.2); NEUT % 39.9 % (42.8-82.8); PLATELET COUNT 188 10^3/uL (134-434); RBC 4.28 M/mm3 (4.00-5.60); WHITE BLOOD COUNT 5.7 K/mm3 (4.0-10.0)
[2022-02-02 08:31] LABS: PHOSPHOROUS 4.5 mg/dL (2.5-4.9)
[2022-02-02] MEDS: ACETAMINOPHEN 325 MG TABLET (FP) PO PRN ×2 (09:31→20:06)
[2022-02-02] MEDS: HEPARIN NA (PORCINE) 5,000 UNITS/ML 1ML VIAL SQ SCH ×2 (09:31→22:53)
[2022-02-02] MEDS: ASPIRIN 81 MG CHEWABLE TABLETS PO SCH (09:32)
[2022-02-02] MEDS: THIAMINE HCL 100 MG TABLET (FP) PO SCH (09:32)
[2022-02-02] MEDS: PANTOPRAZOLE 40 MG TABLET PO SCH (09:32)
[2022-02-02] MEDS: SERTRALINE HCL 50 MG TABLET (FP) PO SCH (09:32)
[2022-02-02] MEDS: NICOTINE 14 MG/24 HOURS TOPICAL PATCH TD SCH (09:32)
[2022-02-02] MEDS: BUDESONIDE/FORMETEROL FUMARATE 80/4.5 mcg INHALER IH SCH ×2 (09:33→23:04)
[2022-02-02] MEDS: LIDOCAINE 5% TOPICAL PATCH TP SCH (09:33)
[2022-02-02] MEDS: FOLIC ACID 1 MG TABLET (FP) PO SCH (09:33)
[2022-02-02] MEDS: BACLOFEN 10 MG TABLET (FP) PO PRN ×2 (11:20→20:06)
[2022-02-02] MEDS ORDERED: SODIUM CHLORIDE 500 ML IV ONE (13:08)
[2022-02-02] MEDS ORDERED: cloNIDine-TTS 0.1 MG/24 HRS PATCH.TDWK TD SCH (15:00)
[2022-02-02] MEDS ORDERED: TRIMETHOBENZAMIDE HCL 200MG/2ML INJ IM ONE (20:34)
[2022-02-02] MEDS: ATORVASTATIN CA 40 MG TABLET (FP) PO SCH (22:53)
[2022-02-02] MEDS: LIDOCAINE PATCH REMOVAL MC SCH (22:57)
[2022-02-03] MEDS ORDERED: chlordiazePOXIDE HCL 10 MG CAPSULE PO ONE ×2 (05:00)
[2022-02-03] MEDS: methaDONE HCL 10 MG TABLET PO SCH (06:33)
[2022-02-03] MEDS: ACETAMINOPHEN 325 MG TABLET (FP) PO PRN (06:34)
[2022-02-03] MEDS: PANTOPRAZOLE 40 MG TABLET PO SCH (09:27)
[2022-02-03] MEDS: HEPARIN NA (PORCINE) 5,000 UNITS/ML 1ML VIAL SQ SCH (09:27)
[2022-02-03] MEDS: THIAMINE HCL 100 MG TABLET (FP) PO SCH (09:27)
[2022-02-03] MEDS: SERTRALINE HCL 50 MG TABLET (FP) PO SCH (09:27)
[2022-02-03] MEDS: ASPIRIN 81 MG CHEWABLE TABLETS PO SCH (09:27)
[2022-02-03] MEDS: NICOTINE 14 MG/24 HOURS TOPICAL PATCH TD SCH (09:27)
[2022-02-03] MEDS: FOLIC ACID 1 MG TABLET (FP) PO SCH (09:27)
[2022-02-03] MEDS: LIDOCAINE 5% TOPICAL PATCH TP SCH (09:28)
[2022-02-03] MEDS: BUDESONIDE/FORMETEROL FUMARATE 80/4.5 mcg INHALER IH SCH (09:28)
[2022-02-03 09:29] LABS: HEMATOCRIT 38.9 % (35.4-49); MCH 30.5 pg (25.7-33.7); MCHC 33.4 g/dl (32.0-35.9); MEAN CELL VOLUME 91.1 fl (80-96); MEAN PLT VOLUME 10.7 fl (7.5-11.1); PLATELET COUNT 187 10^3/uL (134-434); RBC 4.27 M/mm3 (4.00-5.60); RDW 13.6 % (11.9-15.9); WHITE BLOOD COUNT 5.7 K/mm3 (4.0-10.0)
[2022-02-03] MEDS: BACLOFEN 10 MG TABLET (FP) PO PRN (10:10)
[2022-02-03 10:43] LABS: CALCIUM 8.8 mg/dL (8.5-10.1)
[2022-02-03 10:44] LABS: ALBUMIN 3.4 g/dl (3.4-5.0); BLOOD UREA NITROGEN 18.5 mg/dL (7-18)
[2022-02-03 10:48] LABS: TOT PROT 6.2 g/dl (6.4-8.2)
[2022-02-03 10:49] LABS: BILIRUBIN,TOTAL 0.3 mg/dL (0.2-1)
[2022-02-03 18:48] VITALS: BP 111/69; PULSE 76; RESP 18; TEMP 98.3
== END 2022-02-03 20:30 | disposition other institution (70) | DRG 203 ==
LOC: JER 09:39 → JERBED 14:40 → J4W 01-31 17:08
PROVIDERS: ADMIT Internal Medicine; ATTEND Internal Medicine
DX: R07.9 Chest pain, unspecified (principal); F11.20 Opioid dependence, uncomplicated; I69.354 Hemiplegia and hemiparesis following cerebral infarction affecting left non-dominant side; F10.239 Alcohol dependence with withdrawal, unspecified; F14.120 Cocaine abuse with intoxication, uncomplicated; M51.27 Other intervertebral disc displacement, lumbosacral region; M54.9 Dorsalgia, unspecified; R00.0 Tachycardia, unspecified; Z59.00 Homelessness unspecified; F17.210 Nicotine dependence, cigarettes, uncomplicated; M48.061 Spinal stenosis, lumbar region without neurogenic claudication
CPT/HCPCS: 0241U-QW; 36415; 70450-TC; 71046-TC-FY; 72131-TC; 80048; 80053; 80061; 80307; 82962; 83036; 83735; 84100; 84443; 84484; 85025; 85027; 85610; 85730; 86850; 86900; 86901; 93005; 93010; 93306-TC; 97116-GP; 97162-GP; 99285-25; J0475; J1644

== ENCOUNTER 2022-02-03 20:33 | Inpatient (IN) | payer OTHER ==
[2022-02-03 21:41] VITALS: BMI 25.8
[2022-02-03] MEDS ORDERED: POLYETHYLENE GLYCOL (HEALTHYLAX) 3350 17 GM PACKET PO PRN (22:03)
[2022-02-03] MEDS ORDERED: NICOTINE 10 MG CARTRIDGE (INHALER) IH PRN (22:03)
[2022-02-03] MEDS ORDERED: MAG HYDROX/AL HYDROX/SIMETH 30 ML UNIT-DOSE CUP PO PRN (22:03)
[2022-02-03] MEDS ORDERED: LOPERAMIDE HCL 2 MG CAPSULE PO PRN (22:03)
[2022-02-03] MEDS ORDERED: guaiFENesin 200 MG/10 ML 10 ML UNIT-DOSE CUPS PO PRN (22:03)
[2022-02-03] MEDS ORDERED: MAGNESIUM HYDROX 2400MG/30ML ORAL SUSPENSION 30 ML CUP PO PRN (22:03)
[2022-02-03] MEDS ORDERED: hydrOXYzine PAMOATE 25 MG CAPSULE (FP) PO PRN (22:03)
[2022-02-03] MEDS ORDERED: ACETAMINOPHEN 325 MG TABLET (FP) PO PRN (22:03)
[2022-02-03] MEDS ORDERED: P-EPHED 60MG/TRIPROLIDI 2.5MG TABLET PO PRN (22:03)
[2022-02-03] MEDS ORDERED: IBUPROFEN 400 MG TABLET (FP) PO ONE (23:54)
[2022-02-03] MEDS: IBUPROFEN 400 MG TABLET (FP) PO PRN (23:55)
[2022-02-04] MEDS ORDERED: ALBUTEROL SO4 2.5/IPRATROPIUM 0.5 INH SOL 3 ML VIAL.NEB. NEB PRN (00:18)
[2022-02-04] MEDS: methaDONE HCL 10 MG TABLET PO SCH (06:31)
[2022-02-04] MEDS ORDERED: ALBUTEROL SO4 HFA INHALER IH PRN (08:17)
[2022-02-04] MEDS: PRENATAL VITAMINS W/ FOLIC ACID TABLET (FP) PO SCH (09:20)
[2022-02-04] MEDS: PANTOPRAZOLE 40 MG TABLET PO SCH (09:22)
[2022-02-04] MEDS: ASPIRIN 81 MG CHEWABLE TABLETS PO SCH (09:22)
[2022-02-04] MEDS: SERTRALINE HCL 50 MG TABLET (FP) PO SCH (09:23)
[2022-02-04] MEDS: BUDESONIDE/FORMETEROL FUMARATE 80/4.5 mcg INHALER IH SCH ×2 (09:25→21:08)
[2022-02-04 10:05] LABS: PH,URINE 5.5 (5.0-8.0); URINE APPEARANCE CLOUDY; URINE BILIRUBIN NEGATIVE (NEGATIVE); URINE COLOR YELLOW; URINE GLUCOSE (UA) NEGATIVE (NEGATIVE); URINE KETONE TRACE (NEGATIVE); URINE LEUK ESTERASE NEGATIVE (NEGATIVE); URINE NITRITE NEGATIVE (NEGATIVE); URINE PROTEIN TRACE (NEGATIVE)
[2022-02-04] MEDS: IBUPROFEN 400 MG TABLET (FP) PO PRN (11:23)
[2022-02-04] MEDS: THIAMINE HCL 100 MG TABLET (FP) PO SCH (21:06)
[2022-02-04] MEDS: ATORVASTATIN CA 40 MG TABLET (FP) PO SCH (21:07)
[2022-02-05] MEDS: methaDONE HCL 10 MG TABLET PO SCH (06:16)
[2022-02-05] MEDS: PRENATAL VITAMINS W/ FOLIC ACID TABLET (FP) PO SCH (09:24)
[2022-02-05] MEDS: ASPIRIN 81 MG CHEWABLE TABLETS PO SCH (09:25)
[2022-02-05] MEDS: PANTOPRAZOLE 40 MG TABLET PO SCH (09:25)
[2022-02-05] MEDS: BUDESONIDE/FORMETEROL FUMARATE 80/4.5 mcg INHALER IH SCH ×2 (09:25→21:08)
[2022-02-05] MEDS: SERTRALINE HCL 50 MG TABLET (FP) PO SCH (09:25)
[2022-02-05] MEDS: MELATONIN 5 MG TABLETS PO PRN (21:08)
[2022-02-05] MEDS: THIAMINE HCL 100 MG TABLET (FP) PO SCH (21:08)
[2022-02-05] MEDS: ATORVASTATIN CA 40 MG TABLET (FP) PO SCH (21:08)
[2022-02-06] MEDS: methaDONE HCL 10 MG TABLET PO SCH (06:08)
[2022-02-06] MEDS: SERTRALINE HCL 50 MG TABLET (FP) PO SCH (09:25)
[2022-02-06] MEDS: PANTOPRAZOLE 40 MG TABLET PO SCH (09:25)
[2022-02-06] MEDS: ASPIRIN 81 MG CHEWABLE TABLETS PO SCH (09:25)
[2022-02-06] MEDS: PRENATAL VITAMINS W/ FOLIC ACID TABLET (FP) PO SCH (09:25)
[2022-02-06] MEDS: BUDESONIDE/FORMETEROL FUMARATE 80/4.5 mcg INHALER IH SCH ×2 (09:25→21:11)
[2022-02-06] MEDS: ATORVASTATIN CA 40 MG TABLET (FP) PO SCH (21:10)
[2022-02-06] MEDS: THIAMINE HCL 100 MG TABLET (FP) PO SCH (21:10)
[2022-02-06] MEDS: MELATONIN 5 MG TABLETS PO PRN (21:10)
[2022-02-07] MEDS: methaDONE HCL 10 MG TABLET PO SCH (06:33)
[2022-02-07] MEDS: BUDESONIDE/FORMETEROL FUMARATE 80/4.5 mcg INHALER IH SCH ×2 (09:21→23:05)
[2022-02-07] MEDS: ASPIRIN 81 MG CHEWABLE TABLETS PO SCH (09:21)
[2022-02-07] MEDS: PRENATAL VITAMINS W/ FOLIC ACID TABLET (FP) PO SCH (09:21)
[2022-02-07] MEDS: PANTOPRAZOLE 40 MG TABLET PO SCH (09:21)
[2022-02-07] MEDS: SERTRALINE HCL 50 MG TABLET (FP) PO SCH (09:21)
[2022-02-07 17:40] VITALS: TEMP 97.7
[2022-02-07] MEDS: IBUPROFEN 400 MG TABLET (FP) PO PRN (17:40)
[2022-02-07 18:28] VITALS: BP 126/64; PULSE 70; RESP 18
[2022-02-07] MEDS: ATORVASTATIN CA 40 MG TABLET (FP) PO SCH (23:05)
[2022-02-07] MEDS: THIAMINE HCL 100 MG TABLET (FP) PO SCH (23:05)
[2022-02-09] MEDS ORDERED: LOPERAMIDE HCL 2 MG CAPSULE PO ONE (02:06)
== END 2022-02-08 03:25 | disposition short-term general hospital (02) | DRG 772 ==
LOC: YASAS 20:33 → Y5N 02-04 00:43
PROVIDERS: ADMIT Surgery; ATTEND Surgery
PROC: HZ42ZZZ Group Counseling for Substance Abuse Treatment, Cognitive-Behavioral (ICD-10-PCS; principal; 2022-02-04)
DX: F11.20 Opioid dependence, uncomplicated (principal); F10.20 Alcohol dependence, uncomplicated; F14.20 Cocaine dependence, uncomplicated; F17.210 Nicotine dependence, cigarettes, uncomplicated; F25.9 Schizoaffective disorder, unspecified; I10 Essential (primary) hypertension; I48.91 Unspecified atrial fibrillation; I69.854 Hemiplegia and hemiparesis following other cerebrovascular disease affecting left non-dominant side; J45.909 Unspecified asthma, uncomplicated; K21.9 Gastro-esophageal reflux disease without esophagitis; R07.9 Chest pain, unspecified; R20.2 Paresthesia of skin; Z62.810 Personal history of physical and sexual abuse in childhood; Z28.310 Unvaccinated for COVID-19; Z28.9 Immunization not carried out for unspecified reason
CPT/HCPCS: 81003; 87811; 93005; 93010; C9803-CS; U0003; U0005

== ENCOUNTER 2022-02-07 19:47 | Observation (INO) | payer OTHER ==
[2022-02-07 20:54] VITALS: BMI 25.8
[2022-02-07] MEDS ORDERED: SODIUM CHLORIDE 0.9% 500 ML INFUS.BAG IV ONE (22:01)
[2022-02-07 22:29] LABS: BASO % 0.6 % (0-2.0); EOS % 0.7 % (0-4.5); HEMATOCRIT 46.9 % (35.4-49); HEMOGLOBIN 15.5 GM/dL (11.7-16.9); MCH 30.2 pg (25.7-33.7); MCHC 33.1 g/dl (32.0-35.9); MEAN CELL VOLUME 91.4 fl (80-96); MEAN PLT VOLUME 10.5 fl (7.5-11.1); MONO % 5.4 % (3.8-10.2); NEUT % 76.3 % (42.8-82.8); PLATELET COUNT 235 10^3/uL (134-434); RBC 5.14 M/mm3 (4.00-5.60); RDW 14.1 % (11.9-15.9); WHITE BLOOD COUNT 9.6 K/mm3 (4.0-10.0)
[2022-02-07 22:48] LABS: CALCIUM 9.2 mg/dL (8.5-10.1)
[2022-02-07 22:49] LABS: ALBUMIN 4.1 g/dl (3.4-5.0); BLOOD UREA NITROGEN 19.3 mg/dL (7-18); MAGNESIUM 1.8 mg/dL (1.8-2.4)
[2022-02-07 22:52] LABS: PHOSPHOROUS 4.1 mg/dL (2.5-4.9)
[2022-02-07 22:53] LABS: BILIRUBIN,TOTAL 0.4 mg/dL (0.2-1); TOT PROT 7.4 g/dl (6.4-8.2)
[2022-02-08] MEDS ORDERED: ACETAMINOPHEN 500 MG TABLET (FP) PO ONE (00:04)
[2022-02-08] MEDS ORDERED: MAG HYDROX/AL HYDROX/SIMETH 30 ML UNIT-DOSE CUP PO ONE (00:04)
[2022-02-08] MEDS ORDERED: ONDANSETRON 4 MG/2 ML VIAL IVPB ONE (00:04)
[2022-02-08] MEDS ORDERED: MAG HYDROX/AL HYDROX/SIMETH 30 ML UNIT-DOSE CUP ONE (00:25)
[2022-02-08] MEDS ORDERED: ONDANSETRON 4 MG/2 ML VIAL ONE (00:25)
[2022-02-08] MEDS ORDERED: LACTATED RINGERS SOLUTION 1,000 ML/1,000 ML INFUS.BAG IV SCH (01:15)
[2022-02-08] MEDS ORDERED: ACETAMINOPHEN 500 MG TABLET (FP) PO PRN (06:30)
[2022-02-08 10:00] LABS: ALBUMIN 3.7 g/dl (3.4-5.0)
[2022-02-08 10:02] LABS: MAGNESIUM 2.3 mg/dL (1.8-2.4)
[2022-02-08 10:04] LABS: PHOSPHOROUS 3.7 mg/dL (2.5-4.9)
[2022-02-08 10:05] LABS: CREATININE 0.9 mg/dL (0.55-1.3); TOT PROT 6.7 g/dl (6.4-8.2)
[2022-02-08] MEDS ORDERED: ASPIRIN 81 MG CHEWABLE TABLETS PO ONE (10:22)
[2022-02-08] MEDS: ENOXAPARIN NA (PORCINE) 40 MG/0.4 ML DISP.SYRIN SQ SCH (11:01)
[2022-02-08] MEDS ORDERED: ENOXAPARIN NA (PORCINE) 40 MG/0.4 ML DISP.SYRIN SQ ONE (11:01)
[2022-02-08] MEDS ORDERED: ASPIRIN 325 MG TABLET ONE (11:01)
[2022-02-08 11:19] LABS: BILIRUBIN,TOTAL 0.5 mg/dL (0.2-1)
[2022-02-08] MEDS ORDERED: THIAMINE HCL 200 MG/2 ML VIAL IVPB ONE (12:20)
[2022-02-08] MEDS: LACTATED RINGERS SOLUTION 1,000 ML/1,000 ML INFUS.BAG IV SCH (12:42)
[2022-02-08] MEDS ORDERED: THIAMINE HCL 200 MG/2 ML VIAL ONE (12:43)
[2022-02-09 01:35] LABS: PH,URINE 6.5 (5.0-8.0); URINE APPEARANCE CLEAR; URINE BILIRUBIN NEGATIVE (NEGATIVE); URINE COLOR YELLOW; URINE GLUCOSE (UA) NEGATIVE (NEGATIVE); URINE KETONE NEGATIVE (NEGATIVE); URINE LEUK ESTERASE NEGATIVE (NEGATIVE); URINE NITRITE NEGATIVE (NEGATIVE); URINE PROTEIN NEGATIVE (NEGATIVE); URINE UROBILINOGEN 0.2 mg/dL (0.2-1.0)
[2022-02-09 01:42] LABS: COCAINE, UR NEGATIVE (NEGATIVE); OPIATES, URI NEGATIVE (NEGATIVE); PHENCYCLIDINE,URINE NEGATIVE (NEGATIVE); URINE AMPHETAMINES NEGATIVE (NEGATIVE)
[2022-02-09 01:43] LABS: URINE BARBITURATES NEGATIVE (NEGATIVE)
[2022-02-09 01:47] LABS: METHADONE, UR POSITIVE (NEGATIVE); URINE BENZODIAZEPINES POSITIVE (NEGATIVE)
[2022-02-09] MEDS ORDERED: LOPERAMIDE HCL 1 MG/5 ML UNIT DOSE CUP PO ONE (03:06)
[2022-02-09] MEDS ORDERED: LOPERAMIDE HCL 2 MG CAPSULE ONE (03:17)
[2022-02-09] MEDS ORDERED: THIAMINE HCL 100 MG TABLET (FP) ONE (08:18)
[2022-02-09] MEDS ORDERED: ENOXAPARIN NA (PORCINE) 40 MG/0.4 ML DISP.SYRIN SQ ONE (08:19)
[2022-02-09] MEDS: THIAMINE HCL 100 MG TABLET (FP) PO SCH (08:26)
[2022-02-09] MEDS: ENOXAPARIN NA (PORCINE) 40 MG/0.4 ML DISP.SYRIN SQ SCH (08:26)
[2022-02-09] MEDS: LACTATED RINGERS SOLUTION 1,000 ML/1,000 ML INFUS.BAG IV SCH (11:46)
[2022-02-09] MEDS ORDERED: methaDONE HCL 10 MG TABLET PO ONE (13:05)
[2022-02-09] MEDS ORDERED: IBUPROFEN 600 MG TABLET (FP) PO ONE (20:12)
[2022-02-09] MEDS ORDERED: levETIRAcetam 500 MG/5 ML INJECTION VIAL IVPB ONE (21:30)
[2022-02-09] MEDS ORDERED: MELATONIN 5 MG TABLETS PO PRN (23:07)
[2022-02-10 01:59] VITALS: RESP 18
[2022-02-10] MEDS ORDERED: levETIRAcetam 500 MG TABLET (FP) PO SCH (08:00)
[2022-02-10] MEDS: ENOXAPARIN NA (PORCINE) 40 MG/0.4 ML DISP.SYRIN SQ SCH (09:23)
[2022-02-10] MEDS: THIAMINE HCL 100 MG TABLET (FP) PO SCH (09:23)
[2022-02-10 10:11] VITALS: BP 129/63; PULSE 59; TEMP 98.2
[2022-02-10] MEDS ORDERED: KETOROLAC TROMETHAMINE 15 MG/ML VIAL IVPUSH ONE (12:27)
== END 2022-02-10 18:27 | disposition other institution (70) ==
LOC: JER 19:47 → JERBED 02-08 00:49 → J4S 02-09 14:42
PROVIDERS: ADMIT Internal Medicine; ATTEND Internal Medicine
PROC: 3E023GC Introduction of Other Therapeutic Substance into Muscle, Percutaneous Approach (ICD-10-PCS; principal; 2022-02-08)
PROC: 3E0333Z Introduction of Anti-inflammatory into Peripheral Vein, Percutaneous Approach (ICD-10-PCS; 2022-02-08)
PROC: 3E0337Z Introduction of Electrolytic and Water Balance Substance into Peripheral Vein, Percutaneous Approach (ICD-10-PCS; 2022-02-08)
PROC: 3E033GC Introduction of Other Therapeutic Substance into Peripheral Vein, Percutaneous Approach (ICD-10-PCS; 2022-02-08)
DX: G40.209 Localization-related (focal) (partial) symptomatic epilepsy and epileptic syndromes with complex partial seizures, not intractable, without status epilepticus (principal); R20.2 Paresthesia of skin; I10 Essential (primary) hypertension; J45.909 Unspecified asthma, uncomplicated; F20.9 Schizophrenia, unspecified; F31.9 Bipolar disorder, unspecified; F19.10 Other psychoactive substance abuse, uncomplicated
CPT/HCPCS: 0241U-QW; 36415; 70450-TC; 70496-TC; 70498-TC; 70553-TC; 80053; 80307; 81003; 83690; 83735; 84100; 84436; 84443; 84484; 85025; 93005; 93010; 96361; 96372; 96374; 96375; 99285-25; A9579; G0378

== ENCOUNTER 2024-09-12 12:49 | Inpatient (IN) | payer OTHER ==
[2024-09-12] MEDS ORDERED: ONDANSETRON *ODT* 4 MG TABLET SL PRN (14:28)
[2024-09-12] MEDS ORDERED: guaiFENesin 600 MG TABLET.ER (FP) PO PRN (14:28)
[2024-09-12] MEDS ORDERED: NALOXONE (NARCAN) HCL 4 MG/0.1 ML SPRAY NS PRN (14:28)
[2024-09-12] MEDS ORDERED: LOPERAMIDE HCL 2 MG CAPSULE PO PRN (14:28)
[2024-09-12] MEDS ORDERED: BENZOCAINE/MENTHOL (CHLORASEPTIC ) LOZENGE MM PRN (14:28)
[2024-09-12] MEDS ORDERED: BENZONATATE 200 MG CAPSULE PO PRN (14:28)
[2024-09-12] MEDS ORDERED: MAGNESIUM HYDROX 2400MG/30ML ORAL SUSPENSION 30 ML CUP PO PRN (14:28)
[2024-09-12] MEDS ORDERED: DICYCLOMINE HCL 10 MG CAPSULE PO PRN (14:28)
[2024-09-12] MEDS ORDERED: MAG HYDROX/AL HYDROX/SIMETH 30 ML UNIT-DOSE CUP PO PRN (14:28)
[2024-09-12] MEDS ORDERED: IBUPROFEN 400 MG TABLET (FP) PO PRN (14:28)
[2024-09-12] MEDS ORDERED: BISMUTH SUBSALICYLATE 262 MG/15 ML BTL PO PRN (14:28)
[2024-09-12] MEDS ORDERED: IBUPROFEN 600 MG TABLET (FP) PO ONE (18:00)
[2024-09-12] MEDS: IBUPROFEN 600 MG TABLET (FP) PO PRN (18:02)
[2024-09-12] MEDS: BUDESONIDE/FORMETEROL FUMARATE 80/4.5 mcg INHALER IH SCH (18:32)
[2024-09-12] MEDS: PRENATAL VITAMINS W/ FOLIC ACID TABLET (FP) PO SCH (18:39)
[2024-09-12] MEDS: NICOTINE 21 MG/24 HOURS TOPICAL PATCH TD SCH (18:39)
[2024-09-12] MEDS: LIDOCAINE PATCH REMOVAL MC SCH (22:39)
[2024-09-12] MEDS: levETIRAcetam 500 MG TABLET (FP) PO SCH (22:40)
[2024-09-12] MEDS: ACAMPROSATE CALCIUM 333 MG TABLET.DR PO SCH (22:40)
[2024-09-12] MEDS: MELATONIN 5 MG TABLETS PO SCH (22:40)
[2024-09-12] MEDS: ATORVASTATIN CA 40 MG TABLET (FP) PO SCH (22:40)
[2024-09-12] MEDS: THIAMINE 100 MG TABLET PO SCH (22:40)
[2024-09-13] MEDS: METHOCARBAMOL 500 MG TABLET PO PRN (05:59)
[2024-09-13] MEDS ORDERED: BUDESONIDE/FORMETEROL FUMARATE 80/4.5 mcg INHALER IH SCH (10:30)
[2024-09-13] MEDS: ASPIRIN 81 MG CHEWABLE TABLETS PO SCH (10:47)
[2024-09-13] MEDS: LIDOCAINE 5% TOPICAL PATCH TP SCH (10:48)
[2024-09-13] MEDS: PANTOPRAZOLE 40 MG TABLET PO SCH (10:49)
[2024-09-13 11:17] LABS: MCHC 32.5 g/dl (32.3-36.5); MEAN CELL VOLUME 94.5 fl (79.0-92.2); MEAN PLT VOLUME 12.9 fl (9.4-12.4); RDW 12.8 % (12.0-15.6)
[2024-09-13 11:22] LABS: CO2 28 mmol/L (21-32); GLUCOSE,RANDOM 147 mg/dL (74-106)
[2024-09-13 11:24] LABS: CREATININE 0.8 mg/dL (0.55-1.3); SGPT/ALT 25 U/L (13-61)
[2024-09-13 11:25] LABS: SGOT/AST 9 U/L (15-37)
[2024-09-13 11:26] LABS: TOT PROT 5.3 g/dl (6.4-8.2)
[2024-09-13 11:35] LABS: ALK PHOS 112 U/L (45-117)
[2024-09-14 15:43] VITALS: BMI 23.7
[2024-09-14] MEDS: hydrOXYzine PAMOATE 25 MG CAPSULE (FP) PO PRN (17:40)
[2024-09-14] MEDS: NICOTINE POLACRILEX 4 MG GUM BUC PRN (18:05)
[2024-09-14] MEDS: ACETAMINOPHEN 325 MG TABLET (FP) PO PRN (21:52)
[2024-09-15] MEDS: POLYETHYLENE GLYCOL (HEALTHYLAX) 3350 17 GM PACKET PO PRN (10:10)
[2024-09-15] MEDS: hydrOXYzine PAMOATE 25 MG CAPSULE (FP) PO PRN (18:15)
[2024-09-15] MEDS: QUEtiapine FUMARATE 100 MG TABLET (FP) PO SCH (21:51)
[2024-09-16] MEDS ORDERED: POTASSIUM CHLORIDE TABS 20 MEQ TABLET.ER (FP) PO SCH (10:47)
[2024-09-16] MEDS: POTASSIUM CHLORIDE TABS 20 MEQ TABLET.ER (FP) PO SCH (10:55)
[2024-09-16] MEDS: POTASSIUM CHLORIDE TABS 10 MEQ TABLET.ER (FP) PO SCH (10:56)
[2024-09-16] MEDS: BACITRACIN ZINC 15 GM TUBE TOPICAL OINTMENT TP SCH (11:19)
[2024-09-17] MEDS: BACITRACIN 0.9 GM PACKET TP SCH (18:46)
[2024-09-18 13:12] VITALS: BP 103/69; PULSE 103; RESP 15; TEMP 97.2
== END 2024-09-18 15:50 | disposition other institution (70) | DRG 775 ==
LOC: YASAS 12:49 → Y3N 17:42
PROVIDERS: ADMIT Neuromusculoskeletal Medicine & OMM; ATTEND Psychiatry & Neurology Pain Medicine
PROC: HZ2ZZZZ Detoxification Services for Substance Abuse Treatment (ICD-10-PCS; principal; 2024-09-12)
DX: F10.230 Alcohol dependence with withdrawal, uncomplicated (principal); I10 Essential (primary) hypertension; M54.50 Low back pain, unspecified; F32.A Depression, unspecified; F20.9 Schizophrenia, unspecified; F17.210 Nicotine dependence, cigarettes, uncomplicated; K21.9 Gastro-esophageal reflux disease without esophagitis; J45.22 Mild intermittent asthma with status asthmaticus; Z86.73 Personal history of transient ischemic attack (TIA), and cerebral infarction without residual deficits; I48.0 Paroxysmal atrial fibrillation
CPT/HCPCS: 36415; 80053; 80305; 80307; 82962; 85027; 86780; 93005; 93010

== ENCOUNTER 2024-09-14 12:20 | Emergency (ER) | payer OTHER ==
[2024-09-14 12:24] VITALS: BP 120/73; PULSE 88; RESP 18; TEMP 98.2; BMI 24.3
== END 2024-09-14 15:22 ==
LOC: JER 12:20
DX: M54.2 Cervicalgia (principal); R07.89 Other chest pain; W01.198A Fall on same level from slipping, tripping and stumbling with subsequent striking against other object, initial encounter
CPT/HCPCS: 70450-TC; 72125-TC; 93005; 93010; 99284-25